=== PATIENT | male | born 1955 | race Caucasian/White ===

== ENCOUNTER 2018-09-08 06:25 | Day surgery (SDC) | payer OTHER ==
[~2018-09-08] VITALS: Ht 172.7 cm; Wt 86.2 kg
[~2018-09-08 06:25] MED LIST: ADLT ASA LOW81 MG PO; AMOXICILLIN500 MG PO; AMOXIL500 MG OR; CADUET5 MG/10 MG OR; CORTISPORIN OTI10 ML OT; DIFLUCAN100 MG PO; LOMOTIL2.5 MG OR; LORTAB 7.57.5 MG PO; LOSARTAN POT50 MG PO; METOPROL TAR25 MG PO; MINOCYCLINE100 MG OR; NAPROSYN500 MG OR; NORCO1 TA2 PO; OMEPRAZOLE40 MG PO; POOR HISTORIAN; PRAVASTATIN10 MG PO; TAMSULOSIN0.4 MG PO; TRAMADOL HCL50 MG PO
[2018-09-08 08:52] VITALS: BP 140/90
== END 2018-09-08 09:20 | disposition home or self-care (01) | DRG 552 ==
LOC: ORM 06:25
PROVIDERS: ATTEND Anesthesiology Pain Medicine
PROC: 3E0T3BZ Introduction of Anesthetic Agent into Peripheral Nerves and Plexi, Percutaneous Approach (ICD-10-PCS; principal; 2018-09-08)
PROC: 3E0T33Z Introduction of Anti-inflammatory into Peripheral Nerves and Plexi, Percutaneous Approach (ICD-10-PCS; 2018-09-08)
PROC: 3E0T3BZ Introduction of Anesthetic Agent into Peripheral Nerves and Plexi, Percutaneous Approach (ICD-10-PCS; 2018-09-08)
PROC: 3E0T33Z Introduction of Anti-inflammatory into Peripheral Nerves and Plexi, Percutaneous Approach (ICD-10-PCS; 2018-09-08)
DX: M54.5 Low back pain (principal); M12.9 Arthropathy, unspecified; M47.816 Spondylosis without myelopathy or radiculopathy, lumbar region

== ENCOUNTER 2020-08-02 07:36 | Observation (INO) | payer SELFPAY ==
[~2020-08-02] VITALS: Ht 172.7 cm; Wt 86.2 kg
[2020-08-02] VITALS (9 sets, daily range): BP systolic 134–158; BP diastolic 70–90
--- NOTE | 2020-08-02 11:00 | NUR ---
PT DIRECT ADMIT FROM OR. PT ARRIVED TO [facility] ROOM 262 VIA STRETCHER IN STABLE CONDITIION ACCOMPAINED BY OR STAFF. PT HAD LAPRASCOPIC CHOLESECTOMY THAT TURNED TO OPEN CHOLESECTOMY AND HERNIA REPAIR BY DR GOMEZ. BEDSIDE REPORT RECIEVED BY OR. INRODUCED SELF TO PT AND DISCUSSED POC. ASSESSMENT AND VITALS COMPLETED AT THIS TIME. BP 153/83, HR 76, O2 99% ON 1L NC. PT SATING 91-92% ON ROOM AIR.RESPIRATIONS ARE EVEN AND UNLABORED WITH NO SIGNS OF DISTRESS NOTED. LUNG SOUNDS ARE CLEAR. HEART RHYTHM IS NORMAL. BOWEL SOUNDS ACTIVE IN ALL QUADRANTS, LAST REPORTED BM 08/02/2020. RADIAL AND PEDAL PULSES ARE STRONG WITH NORMAL CAPILLARY REFILL. #20 IN LAC FLUSHED, SITE APPEARS HEALTHY AND PATENT. PT COMPLAINS OF 8/10 PAIN IN ABD, PT TO BE MEDICATED PER EMAR. PT PRESENTS WITH MIDLINE INCISION, DRESSING CDI AT THIS TIME. ABD BINDER APPLIED. I.S. AT BEDSIDE.SCDS APPLIED. PT INFORMS WRITTER OF CODINE ALLERGY, ALLERGY BAND APPLIED. PT DENIES OF ANY OTHER PAINS OR DISCOMFORTS. PT ORIENTED TO ROOM AND CALL LIGHT SYSTEM. ALLS AFETY PRECAUTIONS ARE IN PLACE. WILL CONTINUE TO MONITOR
--- NOTE | 2020-08-02 14:35 | NUR ---
REASSESSMENT OF PAIN AT THIS TIME RESULTING IN 02/02. PT STATES "OH ITS WORKING." RESPIRATIONS ARE EVEN AND UNLABORED WITH NO SIGNS OF DISTRES NOTED. ALL SAFETY PRECAUTIONS ARE IN PLACE WIHT CALL LIGHT IN REACH. WILL CONTINUE TO MONITOR
--- NOTE | 2020-08-02 16:02 | NUR ---
PT RESTING IN SEMI FOWLERS POSITION . RESPIRATIONS ARE EVEN AND UNLABORED WITH NO SIGNS OF DISTRESS NOTED. PT REPORTS TENDERNESS IN ABD BUT REFUSES PAIN MEDICATION AT THIS TIME. MIDLINE DRESSING CDI. ABD BINDER APPLIED. SCDS APPLIES. I.S. AT BEDSIDE. PT INFORMS WRITTER HE WANTS TO TRY A CLEAR LIQUID DIET TO START OUT . ALL SAFETY PRECAUTIONS ARE IN PLACE WITH CALL LIGHT IN REACH. WILL CONTINUE TO MONITOR
--- NOTE | 2020-08-02 16:58 | NUR ---
PT note Patient is screened for PT intervention and no needs are identified at this time.
--- NOTE | 2020-08-02 17:08 | NUR ---
PT COMPLAINS OF 9/10 ABD PAIN. PT TO BE MEDICATED PE EMAR. REPSIRATIONS EVEN AND UNLABORED WITH NO SIGNS OF DISTRESS NOTED. ABD BINDER REMAIN SIN PLACE. PT DENIES OF ANY OTHER PAINS OR DISCOMFORTS. ALL SFAETY PRECAUTIONS ARE IN PLACE WIHT CALL LIGHT IN REACH. WILL CONTINUE TO MONITOR
--- NOTE | 2020-08-02 17:52 | NUR ---
REASSESSMENT OF PAIN RESULTING IN 02/02 AFTER DILAUDID. PT REFUSED TORADOL STATING "IT DOES HELP." RESPIRATIONS ARE EVEN AND UNLABORED WITH NO SIGNS OF DISTRESS NOTED. PT DENIES ANY OTHER PAINS OR DISCOMFORTS AT THIS TIME. ALL SAFETY PRECAUTIONS ARE IN PLACE. WILL CONTINUE TO MONITOR
--- NOTE | 2020-08-02 19:30 | NUR ---
PATIENT SITTING UP IN BED WITH VISITOR AT BEDSIDE. PATIENT AWAKE ALERT AND ORIENTEDX3. PATIENT STATES THAT HE WAS ABLE TO TOLERATE CLEAR LIQUID DIET AT [facility]INNER WITHOUT ANY DIFFICULTY. DENIES ANY NAUSEA AT THIS TIME. ABD DRESSING INTACT WITH SMALL AMT OF SHADOWING NOTED. ABD BINDER IN PLACE. ABD IS SOFT WITH HYPOACTIVE BS. SCD'S IN PLACE. INSTRUCTED ON USE OF IS Q1H WHILE AWAKE-ABLE TO DEMONSTRATE PROPER USE OF THE DEVICE. SALINE LOCK TO LEFT AC INTACT-SITE APPEARS HEALTHY AT THIS TIME WITH GOOD BLOOD RETURN. VOIDED 300CC OF CLEAR YELLOW URINE IN URINAL. 2000-PATIENT UP AND AMB IN THE [facility] WITH ASSIST-TOLERATED FAIR WITH STEADY GAIT. RETURNED TO ROOM AND MEDICATED FOR POST-OP PAIN 8/10 ON PAIN SCALE WITH DILAUDID 1MG IVP ORDERED. SAFETY PRECAUTIONS REINFORCED. CALL LIGHT IN REACH. WILL CONT TO MONITOR.
--- NOTE | 2020-08-02 23:00 | NUR ---
PATIENT RESTING IN BED WITH HOB ELEVATED. PATIENT ENCOURAGED TO CONT TO USE IS DIRECTED. INSTRUCTED REGUARDING SPLINTING OF ABD WHEN COUGHING. C/O POST-OP PAIN 07/05-MEDICATED WITH DILAUDID 1MG IVP ORDERED FOR PAIN VIA LEFT AC IV SITE. SITE REMAINS HEALTHY. SAFETY PRECAUTIONS REINFORCED. CALL LIGHT IN REACH. WILL CONT TO MONITOR.
[2020-08-03 00:05] VITALS: BP 128/77
[2020-08-03 04:05] VITALS: BP 149/85
--- NOTE | 2020-08-03 04:20 | NUR ---
PATIENT RESTING IN BED-C/O "COUGHING SPELL" AND POST-OP PAIN. MEDICATED FOR PAIN 06/04 WITH DILAUDID 1MG IVP ORDERED FOR PAIN. ABD DRESSING UNCHANGED WITH ONLY SMALL AMT OF OLD BLOODY DRAINAGE NOTED-UNCHANGED FROM EARLIER ASSESSMENT. ABD BINDER REAPPLIED. SAFETY PRECAUTIONS REINFORCED. CALL LIGHT IN REACH. WILL CONT TO MONITOR.
[2020-08-03 05:15] LABS: HEMATOCRIT 39.1 % (39.0-50.0); HEMOGLOBIN 12.8 g/dl (14.0-18.0); MEAN CELL VOLUME 92.9 fL CALC (80.0-100.0); MEAN CORPUSCULAR HGB 30.4 pG CALC (26.0-32.0); MEAN CORPUSCULAR HGB CONC 32.7 g/dL CAL (32.0-36.0); RED BLOOD COUNT 4.21 mill/uL (4.70-6.10); RED CELL DISTRI WIDTH 13.4 % (11.5-15.5)
[2020-08-03 05:36] LABS: ANION GAP 12 (6-22 (CALC)); BUN 13 mg/dL (8-23); BUN/CREATININE RATIO 19 (12-20 (CALC)); CARBON DIOXIDE 25 mmol/l (22-30); CHLORIDE 103 mmol/l (95-108); CREATININE 0.7 mg/dL (0.7-1.3); GFR > 60 ML/MIN (>=60 (CALC)); GFR FOR AFR.AMER. > 60 ML/MIN (>=60 (CALC)); MAGNESIUM 2.4 mg/dL (1.6-2.3); POTASSIUM 4.4 mmol/l (3.5-5.1); SODIUM 136 mmol/l (137-146)
--- NOTE | 2020-08-03 07:28 | NUR ---
AT BEDSIDE DISCUSSING POC.
[2020-08-03] MEDS ORDERED: DILAUDID2 MG PO (07:32)
--- NOTE | 2020-08-03 07:36 | NUR ---
Patient is screened for PT intervention and has no needs at this time
--- NOTE | 2020-08-03 07:55 | NUR ---
PATIENT LAYING IN BED ALERT AND ORIENTED X4. PATIENT STATES NO COMPLAINTS AT THIS TIME. PATIENT STATED HE HAD PAIN MEDICATION EARLY AM AND STATES PAIN AT THIS TIME IS A 4 OUT OF A SCALE OF 0-10. PATIENT ASSESSMENT DONE AT THIS TIME SEE INTERVENTIONS. PATIENTS ABD. DRESSING HAS SMALL AMOUNT OF OLD DRAINAGE AND IS INTACT AND BINDER IN PLACE. PATIENT INSTRUCTED TO USE INCENTIVE SPIROMETER AND DID RETURN DEMONSTRATION ON HOW TO USE IT. PATIENT BREAKFAST AT BEDSIDE AND PATIENT STATED HE IS "LOOKING FORWARD IN EATING SOMETHING". PATIENT STATED HE WAS BEING DISCHARGED TODAY AND WILL HAVE SOMEONE IN TO PICK HIM UP AROUND 0930. PATIENT TRAVON ANY OTHER NEEDS AT THIS TIME. PATIENT SET UP FOR BREAKFAST.
--- NOTE | 2020-08-03 08:14 | NUR ---
AT BEDSIDE DISCUSSING POC.
[2020-08-03 08:27] VITALS: BP 140/88
--- NOTE | 2020-08-03 09:05 | NUR ---
MORNING MEDICATIONS GIVEN AT THIS TIME.
[2020-08-03 09:06] VITALS: BP 140/88
--- NOTE | 2020-08-03 09:21 | NUR ---
PATIENT DISCHARGED AT THIS TIME. PATIENT DISCHARGE INSTRUCTIONS GIVEN AND PATIENT EDUCATION GIVEN. PATIENT VERBALIZES DISCHARGE AND EDUCATION UNDERSTANING AND HAS NO OTHER QUESTIONS OR CONCERNS.
--- NOTE | 2020-08-03 09:47 | NUR ---
PATIENT TAKE OUT VIA WHEELCHAIR FOR DISCHARGE AT THIS TIME. PATIENT TAKEN HOME BY FRIEND.
== END 2020-08-03 09:43 | disposition home or self-care (01) | DRG 416 ==
LOC: ORM 07:36 → MS2 10:58
PROVIDERS: Nurse Practitioner; ADMIT Surgery; ATTEND Surgery
PROC: 0FT40ZZ Resection of Gallbladder, Open Approach (ICD-10-PCS; principal; 2020-08-02)
PROC: 0FJ44ZZ Inspection of Gallbladder, Percutaneous Endoscopic Approach (ICD-10-PCS; 2020-08-02)
PROC: 0WQF0ZZ Repair Abdominal Wall, Open Approach (ICD-10-PCS; 2020-08-02)
DX: K80.20 Calculus of gallbladder without cholecystitis without obstruction (principal); K42.9 Umbilical hernia without obstruction or gangrene; K66.0 Peritoneal adhesions (postprocedural) (postinfection); I11.0 Hypertensive heart disease with heart failure; I50.9 Heart failure, unspecified; E78.5 Hyperlipidemia, unspecified; I25.10 Atherosclerotic heart disease of native coronary artery without angina pectoris; K21.9 Gastro-esophageal reflux disease without esophagitis; K59.00 Constipation, unspecified; N40.0 Benign prostatic hyperplasia without lower urinary tract symptoms; Z20.828 Contact with and (suspected) exposure to other viral communicable diseases
CPT/HCPCS: J0131; J1100; J1610; Q9967

== ENCOUNTER 2021-02-20 11:23 | Emergency (ER) | payer OTHER ==
[~2021-02-20 11:23] MED LIST changes: +CHOLESTYRAMINE4 G1 PO; +DILAUDID2 MG PO
[2021-02-20 12:07] LABS: IMMATURE GRANULOCYTES 0.2 % (0.0-5.0); MEAN CELL VOLUME 92.3 fL CALC (80.0-100.0); MEAN CORPUSCULAR HGB 30.6 pG CALC (26.0-32.0); MEAN CORPUSCULAR HGB CONC 33.2 g/dL CAL (32.0-36.0); NEUT# 7.1 thou/uL (1.82-7.42); RED BLOOD COUNT 5.09 mill/uL (4.70-6.10); RED CELL DISTRI WIDTH 13.2 % (11.5-15.5)
[2021-02-20 12:08] LABS: HEMOGLOBIN 15.6 g/dl (14.0-18.0)
[2021-02-20 12:20] LABS: ALKALINE PHOSPHATASE 88 u/l (38-126); AMYLASE 68 u/l (30-110); ANION GAP 15 (6-22 (CALC)); BUN 13 mg/dL (8-23); BUN/CREATININE RATIO 19 (12-20 (CALC)); CARBON DIOXIDE 26 mmol/l (22-30); CHLORIDE 100 mmol/l (95-108); CREATININE 0.7 mg/dL (0.7-1.3); GFR > 60 ML/MIN (>=60 (CALC)); GFR FOR AFR.AMER. > 60 ML/MIN (>=60 (CALC)); LIPASE 72 u/l (23-300); POTASSIUM 4.2 mmol/l (3.5-5.1); SGOT/AST 28 u/l (19-48); SODIUM 138 mmol/l (137-146)
[2021-02-20 12:23] LABS: ACT PARTIAL THROMBO TIME 25.1 SECONDS (20.0-32.5); ALBUMIN 5.3 g/dL (3.2-5.0); PROTHROMBIN TIME 10.5 SECONDS (9.0-12.5); TOTAL PROTEIN 8.7 g/dL (6.3-8.2)
[2021-02-20 19:23] VITALS: BP 154/87
== END 2021-02-20 19:23 | disposition short-term general hospital (02) | DRG 390 ==
LOC: ED 11:23
DX: K56.609 Unspecified intestinal obstruction, unspecified as to partial versus complete obstruction (principal); I11.0 Hypertensive heart disease with heart failure; I50.9 Heart failure, unspecified; Z90.49 Acquired absence of other specified parts of digestive tract; Z20.822 Contact with and (suspected) exposure to COVID-19
CPT/HCPCS: Q9967

== ENCOUNTER 2021-07-23 07:30 | Day surgery (SDC) | payer MEDICAID ==
[~2021-07-23] VITALS: Ht 172.7 cm; Wt 86.2 kg
[2021-07-23 10:17] VITALS: BP 129/83
== END 2021-07-23 10:02 | disposition home or self-care (01) ==
LOC: ENDO 07:30
PROVIDERS: ATTEND Surgery
DX: Z12.11 Encounter for screening for malignant neoplasm of colon (principal); K57.30 Diverticulosis of large intestine without perforation or abscess without bleeding; I10 Essential (primary) hypertension; Z90.49 Acquired absence of other specified parts of digestive tract